=== PATIENT | female | born 1935 | race Caucasian/White ===

== ENCOUNTER 2016-11-08 14:35 | Inpatient (IN) | payer OTHER, MEDICARE ==
[~2016-11-08] VITALS: Ht 157.5 cm; Wt 71.9 kg
[2016-11-17] MEDS ORDERED: PLAV75TA29 PO (10:25)
[2016-11-17] MEDS ORDERED: ATEN1TAB75 PO (10:25)
[2016-11-17] MEDS ORDERED: LEVO.05 PO (10:25)
[2016-11-17] MEDS ORDERED: AMLO10 PO (10:25)
[2016-11-17] MEDS ORDERED: HYDR25TA5 PO (10:25)
[2016-11-17] MEDS ORDERED: LIPI40TA PO (10:25)
[2016-11-17] MEDS ORDERED: COZA25TA PO (10:25)
[2016-11-17] MEDS ORDERED: ASPI1TAB69 PO (10:27)
[2016-11-17] MEDS ORDERED: FLUT1SPR5 EACH NARE (10:34)
[2016-11-21] MEDS ORDERED: LIPI20TA PO (11:59)
[2016-11-21] MEDS ORDERED: DEXT 5%-NACL 0.9% 1000 ML INJ 1,000 ML IV SCH (12:00)
[2016-11-21] MEDS ORDERED: ALVIMOPAN 12 MG CAPSULE - On Call PO SCH (12:00)
[2016-11-21] MEDS ORDERED: PROPOFOL 200 MG/20 ML AMP IV ONE (12:00)
[2016-11-21] MEDS ORDERED: ONDANSETRON HCL 4 MG/2 ML VIAL IV PUSH ONE (12:00)
[2016-11-21] MEDS ORDERED: ceFAZolin 1,000 MG/NS 100 ML IV SCH ×2 (12:00)
[2016-11-21] MEDS ORDERED: METOPROLOL TARTRATE 25 MG TAB PO PRN (12:00)
[2016-11-21] MEDS ORDERED: METRONIDAZOLE 500 MG/100 ML ISONTONIC SOLN IV SCH (12:00)
[2016-11-21] MEDS ORDERED: PHENYLEPH/NS 1000 MCG/10 ML SYR IV ONE (12:00)
[2016-11-21] MEDS ORDERED: INSULIN HUMAN REGULAR 1,000 UNITS/10 ML VIAL SQ PRN (12:00)
[2016-11-21] MEDS ORDERED: NORMOSOL R INJ 1,000 ML IV ONE (12:00)
[2016-11-21] MEDS ORDERED: LACTATED RINGER'S 1000 ML INJ 1,000 ML IV ONE (12:00)
[2016-11-21] MEDS ORDERED: LACTATED RINGER'S 1000 ML IV SCH (12:00)
[2016-11-21] MEDS ORDERED: SODIUM CHLORID 0.9% 500 ML IV SCH (12:00)
[2016-11-21 12:17] VITALS: BP 155/67; PULSE 62; RESP 16; TEMP 97.1; O2SAT 96
[2016-11-21] MEDS ORDERED: BUPIVACAINE HCL PF 0.5% 30 ML VIAL ONE ×3 (12:45→15:35)
[2016-11-21] MEDS ORDERED: GLUCAGON 1 MG/ML VIAL ONE (12:45)
[2016-11-21] MEDS ORDERED: FAMOTIDINE 20 MG/2 ML VIAL ONE (13:47)
[2016-11-21] MEDS ORDERED: SUGAMMADEX SODIUM 200 MG/2 ML VIAL IV PUSH ONE ×2 (13:47)
[2016-11-21] MEDS ORDERED: DEXAMETHASONE SOD PHOS 4 MG/ML VIAL ONE (13:47)
[2016-11-21] MEDS ORDERED: ACETAMINOPHEN 1000 MG/100 ML VIAL IV ONE (13:47)
--- NOTE | 2016-11-21 14:18 | PD.HP.UP ---
H&P Update Note The Pre-Admit History and Physical Examination regarding the above named patient was reviewed (including, but not limited to, vital signs, heart, lungs, co-morbid conditions), and upon re-examination it is noted that: the patient's condition has not significantly changed since the last examination. Luke Man MD Nov 21, 2016 14:18
[2016-11-21] MEDS ORDERED: ceFAZolin INJ 1,000 MG VIAL IV ONE (16:45)
[2016-11-21] MEDS ORDERED: ENALAPRILAT 2.5 MG/2 ML VIAL IV PRN (17:00)
[2016-11-21] MEDS ORDERED: SODIUM CHLORIDE 0.9% FLUSH 5 ML FLUSH IVF PRN (17:00)
[2016-11-21] MEDS ORDERED: BUPIVACAINE HCL PF 0.5% 30 ML VIAL NB SCH (17:00)
[2016-11-21] MEDS ORDERED: ENALAPRILAT 1.25 MG/ML VIAL IV PRN (17:00)
[2016-11-21] MEDS ORDERED: POTASSIUM CHLOR 20 MEQ PREMIX 100 ML IV PRN (17:00)
[2016-11-21] MEDS ORDERED: KETOROLAC TROMETHAMINE 30 MG/ML (IVP) VIAL IVP PRN (17:00)
[2016-11-21] MEDS ORDERED: MORPHINE SULFATE 30 MG/30 ML PCA IV SCH (17:00)
[2016-11-21] MEDS ORDERED: ACETAMINOPHEN/HYDROcodone 325 MG/5 MG TAB PO PRN ×2 (17:00)
[2016-11-21] MEDS ORDERED: NALOXONE HCL 0.4 MG/ML AMP IV PRN (17:00)
[2016-11-21] MEDS ORDERED: Post-op Orders (for Pharmacy) MISC XX ONE (17:00)
[2016-11-21] MEDS ORDERED: POTASSIUM CHLOR 40 MEQ PREMIX 100 ML IV PRN (17:00)
[2016-11-21] MEDS ORDERED: BENZOCAINE 6 MG/MENTHOL 10 MG LOZENGE SUCK-ON PRN (17:00)
[2016-11-21] MEDS ORDERED: ONDANSETRON HCL 4 MG/2 ML VIAL IV PRN (17:00)
[2016-11-21] MEDS ORDERED: ACETAMINOPHEN 325 MG TAB PO PRN (17:00)
[2016-11-21] MEDS ORDERED: DO NOT ADM ANY ANTICOAGULANT DRUGS XX PRN (17:04)
[2016-11-21] MEDS ORDERED: *morphine SULFATE 8 MG/ML PERIprocedure ONLY ONE (17:10)
[2016-11-21] MEDS ORDERED: FLUTICASONE PROPIONATE 50 MCG/ACT 16 GM NASAL SPRAY EACH NARE PRN (17:15)
[2016-11-21] MEDS: LOSARTAN 25 MG TAB PO SCH (17:15)
[2016-11-21] MEDS ORDERED: MIDAZOLAM HCL 2 MG/2 ML VIAL ONE (17:18)
[2016-11-21] MEDS ORDERED: fentaNYL CITRATE 250 MCG/5 ML AMP ONE (17:18)
[2016-11-21] MEDS: D5-NS + KCL 20 MEQ INJ 1,000 ML IV SCH (17:30)
[2016-11-21] MEDS ORDERED: *ONDANSETRON 4 MG VIAL PERIprocedural Use ONLY ONE (17:48)
[2016-11-21] MEDS: LEVOTHYROXINE SODIUM 50 MCG TAB PO SCH (18:00)
[2016-11-21 18:37] VITALS: BP 137/57; PULSE 67; RESP 18; TEMP 97.7; O2SAT 96
[2016-11-21 18:38] VITALS: PULSE 70
[2016-11-21 19:00] VITALS: BP 137/57; PULSE 65; RESP 18; TEMP 97.9; O2SAT 98
[2016-11-21] MEDS ORDERED: ATENOLOL 100 MG TAB PO SCH (21:00)
[2016-11-21] MEDS: metroNIDAZOLE 500 MG INJ 100 ML IV SCH (21:24)
[2016-11-21] MEDS: ATORVASTATIN 20 MG TAB PO SCH (21:25)
[2016-11-21] MEDS: METOCLOPRAMIDE HCL 10 MG/2 ML VIAL IVS SCH (21:25)
[2016-11-21] MEDS: SODIUM CHLORIDE 0.9% FLUSH 5 ML FLUSH IVF SCH (21:26)
[2016-11-21] MEDS: PCA - TOTAL MG MORPHINE DELIVERED PER SHIFT SCH (22:00)
[2016-11-21 23:00] VITALS: BP 135/60; PULSE 65; PULSE 66; RESP 18; TEMP 97.9; O2SAT 99
[2016-11-22] VITALS (17 sets, daily range): BP systolic 115–134; BP diastolic 48–60; PULSE 61–83; RESP 18–19; TEMP 97.2–98.2; O2SAT 92–97
[2016-11-22] MEDS: metroNIDAZOLE 500 MG INJ 100 ML IV SCH ×2 (04:17→14:01)
[2016-11-22] MEDS: D5-NS + KCL 20 MEQ INJ 1,000 ML IV SCH ×2 (04:18→21:00)
[2016-11-22] MEDS: PCA - TOTAL MG MORPHINE DELIVERED PER SHIFT SCH ×3 (06:00→20:53)
[2016-11-22 06:31] LABS: AUTOMATED NEUTROPHIL # 16.4 TH/MM3 (1.8-7.7); HEMATOCRIT 31.5 % (35.0-46.0); HEMO FLAGS DIFF FINAL; LYMPH % 1.6 % (9.0-44.0); LYMPHOCYTE # 0.3 TH/MM3 (1.0-4.8); MEAN CELL VOLUME 87.5 FL (80.0-100.0); MEAN CORPUSCULAR HEMOGLOBIN 28.7 PG (27.0-34.0); MEAN CORPUSCULAR HGB CONC 32.8 % (32.0-36.0); MONO % 7.2 % (0.0-8.0); NEUT % 91.2 % (16.0-70.0); PLATELET COUNT 261 TH/MM3 (150-450); RED CELL DISTRIBUTION WIDTH 13.9 % (11.6-17.2)
[2016-11-22 06:55] LABS: BICARBONATE 24.4 MEQ/L (21.0-32.0); POTASSIUM 3.5 MEQ/L (3.5-5.1)
[2016-11-22] MEDS: PANTOPRAZOLE SOD 40 MG DELAYED RELEASE TAB PO SCH ×2 (09:00→09:34)
[2016-11-22] MEDS: PANTOPRAZOLE SODIUM 40 MG VIAL IVP SCH (09:32)
[2016-11-22] MEDS: SODIUM CHLORIDE 0.9% FLUSH 5 ML FLUSH IVF SCH ×2 (09:33→20:54)
[2016-11-22] MEDS: METOCLOPRAMIDE HCL 10 MG/2 ML VIAL IVS SCH ×2 (09:33→20:54)
[2016-11-22] MEDS: ALVIMOPAN 12 MG CAPSULE - Post-op dosing PO SCH ×2 (09:33→20:54)
[2016-11-22] MEDS: LOSARTAN 25 MG TAB PO SCH (09:33)
[2016-11-22] MEDS: ACETAMINOPHEN 1000 MG/100 ML VIAL IV PRN (11:49)
[2016-11-22] MEDS: LEVOTHYROXINE SODIUM 50 MCG TAB PO SCH (17:00)
[2016-11-22] MEDS: HEPARIN SODIUM - SQ 10,000 UNITS/ML VIAL SQ SCH (18:18)
[2016-11-22] MEDS: ATORVASTATIN 20 MG TAB PO SCH (20:51)
[2016-11-22] MEDS ORDERED: ALVIMOPAN 12 MG CAPSULE PO SCH (21:00)
[2016-11-23] VITALS (7 sets, daily range): BP systolic 123–147; BP diastolic 59–65; PULSE 65–88; RESP 17–19; TEMP 94.5–98; O2SAT 91–98
[2016-11-23] MEDS: HEPARIN SODIUM - SQ 10,000 UNITS/ML VIAL SQ SCH ×2 (04:45→16:32)
[2016-11-23] MEDS: PCA - TOTAL MG MORPHINE DELIVERED PER SHIFT SCH ×2 (04:45→13:37)
[2016-11-23 05:33] LABS: AUTOMATED NEUTROPHIL # 19.8 TH/MM3 (1.8-7.7); BASOPHIL # 0.1 TH/MM3 (0-0.2); BASOPHIL % 0.5 % (0.0-2.0); EOSINOPHIL % 0.1 % (0.0-4.0); HEMATOCRIT 29.1 % (35.0-46.0); LYMPH % 3.3 % (9.0-44.0); LYMPHOCYTE # 0.7 TH/MM3 (1.0-4.8); MEAN CELL VOLUME 87.5 FL (80.0-100.0); MEAN CORPUSCULAR HEMOGLOBIN 28.5 PG (27.0-34.0); MEAN CORPUSCULAR HGB CONC 32.6 % (32.0-36.0); MONO % 5.4 % (0.0-8.0); NEUT % 90.7 % (16.0-70.0); PLATELET COUNT 236 TH/MM3 (150-450); RED BLOOD COUNT 3.33 MIL/MM3 (4.00-5.30); RED CELL DISTRIBUTION WIDTH 14.2 % (11.6-17.2); WHITE BLOOD COUNT 21.8 TH/MM3 (4.0-11.0)
[2016-11-23 05:37] LABS: HEMO FLAGS AUTO DIFF
[2016-11-23 05:50] LABS: POTASSIUM 3.6 MEQ/L (3.5-5.1)
[2016-11-23 07:35] LABS: SCAN/DIFF AUTO DIFF CONFIRMED
[2016-11-23] MEDS: ALVIMOPAN 12 MG CAPSULE - Post-op dosing PO SCH ×2 (08:18→21:06)
[2016-11-23] MEDS: LOSARTAN 25 MG TAB PO SCH (08:18)
[2016-11-23] MEDS: SODIUM CHLORIDE 0.9% FLUSH 5 ML FLUSH IVF SCH ×2 (08:19→21:03)
[2016-11-23] MEDS: PANTOPRAZOLE SOD 40 MG DELAYED RELEASE TAB PO SCH (08:19)
[2016-11-23] MEDS: METOCLOPRAMIDE HCL 10 MG/2 ML VIAL IVS SCH ×2 (08:19→21:04)
[2016-11-23] MEDS: PANTOPRAZOLE SODIUM 40 MG VIAL IVP SCH (08:19)
[2016-11-23] MEDS: D5-NS + KCL 20 MEQ INJ 1,000 ML IV SCH ×2 (08:20→21:03)
--- NOTE | 2016-11-23 08:23 | MP ---
cc: PANCHO REYES M.D. DATE OF SURGERY: November 21, 2016 PREOPERATIVE DIAGNOSIS Carcinoma of the rectosigmoid. PROCEDURE Exploratory laparotomy with proctosigmoidectomy. POSTOPERATIVE DIAGNOSIS Carcinoma of the rectosigmoid SURGEON Dr. Reyes. [employer] Dr. Braulio Alonso. PROCEDURE The patient was placed in the supine position. After adequate general anesthesia her legs were placed in [place] stirrups and supported appropriately. The abdomen and perineum were then prepped with Betadine solution and draped in the usual sterile fashion. With Dr. Alonso's assistance the abdomen was opened through an infraumbilical transverse incision dividing the rectus muscles with electrocautery. Upon entering the abdomen some adhesions to the parietal peritoneum were taken down. Exploration revealed a palpable tumor just about the perineal reflection with some serosal puckering, was not adherent to any surrounding structure. The proximal colon was palpated and felt to be pretty unremarkable. The small bowel was run from ligament of Treitz down to ileocecal valve and felt to be normal. Liver and gallbladder were unremarkable. The stomach and duodenum were normal. The uterus had been previously removed. Both ovaries were atrophic and appropriate for the patient's age. Great vessels were of normal caliber and only slightly calcified. First the sigmoid colon was mobilized medially by dividing along the white line of Toldt. The left ureter was identified and carefully preserved. Dissection then proceeded up the left gutter taking down attachments to the retroperitoneum, mobilizing the left colon up to around the area of the splenic flexure. The right retroperitoneal space was then opened and the bowel dissected off the presacral fascia, pedicle for the superior hemorrhoidal vessels identified and divided between Tiffanie's obtaining hemostasis with Vicryl ties and bowel was dissected and off the presacral fascia down to the pelvic floor for full rectal mobilization. The cul-de-sac was then opened and the bowel dissected off the posterior vaginal wall. After full rectal mobilization a point in the mid rectum accurate distance below the tumor was chosen and the mesorectum taken with electrocautery. The bowel was then divided using a pursestring suture device and a Edwin clamp. The bowel was then sized to reach the rectum without tension and with good blood supply leaving the left colic vessels. The marginal artery was taken and the bowel divided in the midsigmoid using a pursestring suture device and a Edwin clamp. The end of the bowel was sized to accept a 29-mm EEA stapling anvil and this was secured with a pursestring suture. Dr. Alonso inserted the EEA stapling instrument transanally and under direct vision it was brought up to the rectal pouch and a pursestring suture tied. The stapler was then reassembled, the bowel aligned properly, the stapler closed and fired, upon withdrawal two complete doughnuts of tissue were seen. Gentle insufflation confirmed an airtight anastomosis. The abdomen was then irrigated copiously with normal saline. Adequate hemostasis was achieved. Jamar-Guerrero drain was placed down to the pelvis and brought up through a stab wound in the left lower quadrant and secured to the skin with a nylon suture. Transverse incision was closed anatomically in two layers using #1 PDS sutures to reapproximate the respective fascial layers. On-Q catheters were placed into the rectus sheath on both sides, brought up through subcutaneous tunnel above the transverse incision. The subcu tissue was irrigated copiously and the skin closed with a running subcuticular Vicryl suture. Wound area was washed with normal saline and dried, sterile dressing of Telfa and gauze applied. The patient tolerated the procedure quite well and was brought to the recovery room in stable condition. Sponge and needle counts were correct at the end of the procedure. MD EDUARDO Gaytan/ROHIT /7:38 AM /7:58 AM
[2016-11-23] MEDS: LEVOTHYROXINE SODIUM 50 MCG TAB PO SCH (16:31)
[2016-11-23] MEDS: ACETAMINOPHEN 1000 MG/100 ML VIAL IV PRN (16:32)
[2016-11-23] MEDS ORDERED: ACETAMINOPHEN 325 MG TAB PO PRN (20:15)
[2016-11-23] MEDS: ATORVASTATIN 20 MG TAB PO SCH (21:00)
--- NOTE | 2016-11-23 22:53 | HHI.PR ---
Subjective Remarks C/R Surg POD #2 afebrile, VSS UO good ALLYN min Objective - Vital Signs Date Time Temp Pulse Resp B/P Pulse Ox O2 Delivery O2 Flow Rate FiO2 11/23/16 16:00 94.5 84 17 147/65 91 11/23/16 09:50 Nasal Cannula 3.00 Result Diagram: 11/23/16 0435 11/23/16 0435 Objective Remarks PE alert Abd - soft, wound dry, +flatus A/P Assessment and Plan Imp: stable post-op OOB start PO dc Luke Johnson AM, MD Nov 23, 2016 22:53
[2016-11-24] VITALS: BP 159/61; PULSE 112; RESP 18; TEMP 98.7; O2SAT 92
[2016-11-24] MEDS: HEPARIN SODIUM - SQ 10,000 UNITS/ML VIAL SQ SCH ×2 (05:27→16:12)
[2016-11-24 08:00] VITALS: BP 154/64; PULSE 102; RESP 18; TEMP 97.2; O2SAT 91
[2016-11-24] MEDS: PANTOPRAZOLE SOD 40 MG DELAYED RELEASE TAB PO SCH (09:00)
[2016-11-24] MEDS: SODIUM CHLORIDE 0.9% FLUSH 5 ML FLUSH IVF SCH ×2 (09:00→20:18)
[2016-11-24] MEDS: PANTOPRAZOLE SODIUM 40 MG VIAL IVP SCH (09:23)
[2016-11-24] MEDS: METOCLOPRAMIDE HCL 10 MG/2 ML VIAL IVS SCH ×2 (09:23→20:17)
[2016-11-24] MEDS: LOSARTAN 25 MG TAB PO SCH (09:23)
[2016-11-24] MEDS: ALVIMOPAN 12 MG CAPSULE - Post-op dosing PO SCH ×2 (09:24→20:16)
[2016-11-24 12:00] VITALS: BP 148/67; PULSE 98; RESP 20; TEMP 96.9; O2SAT 92
--- NOTE | 2016-11-24 12:48 | HHI.PR ---
Subjective Remarks POD#3 s/p LAR for rectal cancer Denies pain, passing flatus Objective Vital Signs Date Time Temp Pulse Resp B/P Pulse Ox O2 Delivery O2 Flow Rate FiO2 11/24/16 08:00 97.2 102 18 154/64 91 11/24/16 00:00 98.7 112 18 159/61 92 11/23/16 20:00 97.2 88 18 136/63 92 11/23/16 16:00 94.5 84 17 147/65 91 I/O 11/23/16 11/23/16 11/23/16 11/24/16 11/24/16 11/24/16 07:00 15:00 23:00 07:00 15:00 23:00 Intake Total 1393 ml 692 ml 607 ml 506 ml Output Total 290 ml 830 ml 60 ml 80 ml 300 ml Balance 1103 ml -138 ml 547 ml 426 ml -300 ml Intake Oral 0 ml IV Total 1393 ml 692 ml 607 ml 506 ml Output Urine Total 250 ml 800 ml 300 ml Drainage Total 40 ml 30 ml 60 ml 80 ml # Bowel Movements 0 Result Diagram: 11/23/16 0435 11/23/16 0435 Objective Remarks Abdomen soft, mild distended, tender Wound clean ALLYN serosanguinous Assessment and Plan Assessment and Plan Advance diet Decrease IV Aggressive pulmonary toilet Madai Sandoval MD Nov 24, 2016 12:48
[2016-11-24 16:00] VITALS: BP 140/62; PULSE 92; RESP 19; TEMP 96.5; O2SAT 91
[2016-11-24] MEDS: LEVOTHYROXINE SODIUM 50 MCG TAB PO SCH (16:12)
[2016-11-24 20:00] VITALS: BP 137/63; PULSE 88; RESP 20; TEMP 97.4; O2SAT 92
[2016-11-24] MEDS: ATORVASTATIN 20 MG TAB PO SCH (20:19)
[2016-11-25] VITALS: BP 159/70; PULSE 93; RESP 18; TEMP 98.8; O2SAT 93
[2016-11-25] MEDS: HEPARIN SODIUM - SQ 10,000 UNITS/ML VIAL SQ SCH ×2 (04:56→17:56)
[2016-11-25 08:00] VITALS: BP 154/69; PULSE 91; RESP 18; TEMP 97.8; O2SAT 95
[2016-11-25] MEDS: METOCLOPRAMIDE HCL 10 MG/2 ML VIAL IVS SCH ×2 (08:48→21:00)
[2016-11-25] MEDS: LOSARTAN 25 MG TAB PO SCH (08:48)
[2016-11-25] MEDS: SODIUM CHLORIDE 0.9% FLUSH 5 ML FLUSH IVF SCH ×2 (08:48→21:50)
[2016-11-25] MEDS: PANTOPRAZOLE SOD 40 MG DELAYED RELEASE TAB PO SCH (08:48)
[2016-11-25] MEDS: ALVIMOPAN 12 MG CAPSULE - Post-op dosing PO SCH ×2 (08:49→21:47)
[2016-11-25] MEDS: PANTOPRAZOLE SODIUM 40 MG VIAL IVP SCH (08:50)
[2016-11-25 12:00] VITALS: BP 128/60; PULSE 97; RESP 16; TEMP 96.1; O2SAT 96
--- NOTE | 2016-11-25 12:01 | HHI.PR ---
Subjective Remarks POD#4 s/p LAR for rectal cancer Denies pain, passing flatus - no stool Objective Vital Signs Date Time Temp Pulse Resp B/P Pulse Ox O2 Delivery O2 Flow Rate FiO2 11/25/16 08:00 97.8 91 18 154/69 95 11/25/16 00:00 98.8 93 18 159/70 93 11/24/16 20:00 97.4 88 20 137/63 92 11/24/16 16:00 96.5 92 19 140/62 91 I/O 11/24/16 11/24/16 11/24/16 11/25/16 11/25/16 11/25/16 06:59 14:59 22:59 06:59 14:59 22:59 Intake Total 506 ml 700 ml 0 ml 360 ml Output Total 80 ml 350 ml 60 ml 600 ml Balance 426 ml 350 ml -60 ml -240 ml Intake Oral 700 ml 360 ml IV Total 506 ml 0 ml 0 ml Output Urine Total 300 ml 600 ml Drainage Total 80 ml 50 ml 60 ml # Voids 2 # Bowel Movements 0 0 Result Diagram: 11/23/16 0435 11/23/16 043 Objective Remarks Abdomen soft, mild distended, tender Wound clean ALLYN serosanguinous Assessment and Plan Assessment and Plan HL IV D/C ALLYN Await bowel function Awaiting placement Madai Sandoval MD Nov 25, 2016 12:01
[2016-11-25 16:00] VITALS: BP 133/71; PULSE 82; RESP 19; TEMP 97.9; O2SAT 97
[2016-11-25] MEDS: LEVOTHYROXINE SODIUM 50 MCG TAB PO SCH (16:17)
[2016-11-25 20:00] VITALS: BP 134/69; PULSE 132; RESP 19; TEMP 97.4; O2SAT 95
[2016-11-25] MEDS: ATORVASTATIN 20 MG TAB PO SCH (21:00)
[2016-11-26] VITALS: BP 136/82; PULSE 99; RESP 19; TEMP 98.6; O2SAT 99
[2016-11-26] MEDS: LEVOTHYROXINE SODIUM 50 MCG TAB PO SCH (06:32)
[2016-11-26] MEDS: HEPARIN SODIUM - SQ 10,000 UNITS/ML VIAL SQ SCH ×2 (06:33→18:28)
[2016-11-26 08:00] VITALS: BP 147/64; PULSE 84; RESP 17; TEMP 98.4; O2SAT 97
[2016-11-26] MEDS: PANTOPRAZOLE SOD 40 MG DELAYED RELEASE TAB PO SCH (08:49)
[2016-11-26] MEDS: PANTOPRAZOLE SODIUM 40 MG VIAL IVP SCH (08:50)
[2016-11-26] MEDS: LOSARTAN 25 MG TAB PO SCH (08:50)
[2016-11-26] MEDS: ALVIMOPAN 12 MG CAPSULE - Post-op dosing PO SCH ×2 (08:50→20:33)
[2016-11-26] MEDS: SODIUM CHLORIDE 0.9% FLUSH 5 ML FLUSH IVF SCH ×2 (09:00→20:34)
[2016-11-26] MEDS: METOCLOPRAMIDE HCL 10 MG/2 ML VIAL IVS SCH ×2 (09:00→20:33)
--- NOTE | 2016-11-26 11:11 | HHI.PR ---
Subjective Remarks POD#5 s/p LAR for rectal cancer comfortable, weak Objective Vital Signs Date Time Temp Pulse Resp B/P Pulse Ox O2 Delivery O2 Flow Rate FiO2 11/26/16 08:00 98.4 84 17 147/64 97 11/26/16 00:00 98.6 99 19 136/82 99 11/25/16 20:00 97.4 132 19 134/69 95 11/25/16 16:00 97.9 82 19 133/71 97 11/25/16 12:00 96.1 97 16 128/60 96 I/O 11/25/16 11/25/16 11/25/16 11/26/16 11/26/16 11/26/16 07:00 15:00 23:00 07:00 15:00 23:00 Intake Total 240 ml 702 ml 240 ml 240 ml Output Total 200 ml 305 ml 850 ml 850 ml Balance 40 ml 397 ml -610 ml -610 ml Intake Oral 240 ml 702 ml 240 ml 240 ml IV Total 0 ml 0 ml Output Urine Total 200 ml 275 ml 850 ml 850 ml Drainage Total 30 ml # Bowel Movements 0 0 0 0 Result Diagram: 11/23/16 0435 11/23/16 0435 Objective Remarks Abdomen soft, mild distended, tender Wound clean Assessment and Plan Assessment and Plan Miralax Awaiting placement Madai Sandoval MD Nov 26, 2016 11:11
[2016-11-26] MEDS ORDERED: POLYETHYLENE GLYCOL 17 GM PKG PO ONE (11:15)
[2016-11-26 12:00] VITALS: BP 131/63; PULSE 104; RESP 17; TEMP 97.3; O2SAT 96
[2016-11-26 16:00] VITALS: BP 149/69; PULSE 81; RESP 17; TEMP 98; O2SAT 93
[2016-11-26 20:00] VITALS: BP 158/63; PULSE 63; RESP 20; TEMP 96.9; O2SAT 96
[2016-11-26] MEDS: ATORVASTATIN 20 MG TAB PO SCH (20:33)
[2016-11-27] VITALS: BP 126/60; PULSE 85; RESP 20; TEMP 98; O2SAT 94
[2016-11-27] MEDS: HEPARIN SODIUM - SQ 10,000 UNITS/ML VIAL SQ SCH ×2 (05:24→18:07)
[2016-11-27] MEDS: LEVOTHYROXINE SODIUM 50 MCG TAB PO SCH (05:24)
[2016-11-27 08:00] VITALS: BP 137/62; PULSE 86; RESP 17; TEMP 97.9; O2SAT 95
[2016-11-27] MEDS: PANTOPRAZOLE SODIUM 40 MG VIAL IVP SCH (09:00)
[2016-11-27] MEDS: METOCLOPRAMIDE HCL 10 MG/2 ML VIAL IVS SCH ×2 (09:00→20:07)
[2016-11-27] MEDS: LOSARTAN 25 MG TAB PO SCH (09:23)
[2016-11-27] MEDS: PANTOPRAZOLE SOD 40 MG DELAYED RELEASE TAB PO SCH (09:23)
[2016-11-27] MEDS: ALVIMOPAN 12 MG CAPSULE - Post-op dosing PO SCH ×2 (09:23→20:08)
[2016-11-27] MEDS: SODIUM CHLORIDE 0.9% FLUSH 5 ML FLUSH IVF SCH ×2 (09:24→20:07)
[2016-11-27 12:00] VITALS: BP 146/63; PULSE 100; RESP 17; TEMP 98.2; O2SAT 96
--- NOTE | 2016-11-27 13:02 | HHI.PR ---
Subjective Remarks POD#6 s/p LAR for rectal cancer comfortable, feels stronger No stool as yet Objective Vital Signs Date Time Temp Pulse Resp B/P Pulse Ox O2 Delivery O2 Flow Rate FiO2 11/27/16 12:00 98.2 100 17 146/63 96 11/27/16 08:00 97.9 86 17 137/62 95 11/27/16 00:00 98.0 85 20 126/60 94 11/26/16 20:00 96.9 63 20 158/63 96 11/26/16 16:00 98.0 81 17 149/69 93 I/O 11/26/16 11/26/16 11/26/16 11/27/16 11/27/16 11/27/16 06:59 14:59 22:59 06:59 14:59 22:59 Intake Total 240 ml 240 ml 240 ml Output Total 850 ml 700 ml Balance -610 ml -700 ml 240 ml 240 ml Intake Oral 240 ml 240 ml 240 ml IV Total 0 ml Output Urine Total 850 ml 700 ml # Voids 1 3 # Bowel Movements 0 0 0 2 Result Diagram: 11/23/16 0435 11/23/16 0435 Objective Remarks Abdomen soft, mild distended, tender Wound clean Assessment and Plan Assessment and Plan Miralax Awaiting placement Madai Sandoval MD Nov 27, 2016 13:02
[2016-11-27] MEDS: POLYETHYLENE GLYCOL 17 GM PKG PO SCH (15:12)
[2016-11-27 16:00] VITALS: BP 134/60; PULSE 86; RESP 17; TEMP 98.3; O2SAT 95
[2016-11-27 20:00] VITALS: BP 157/67; PULSE 84; RESP 20; TEMP 97.8; O2SAT 98
[2016-11-27] MEDS: ATORVASTATIN 20 MG TAB PO SCH (20:08)
[2016-11-28] VITALS: BP 148/72; PULSE 80; RESP 20; TEMP 98; O2SAT 97
[2016-11-28] MEDS: LEVOTHYROXINE SODIUM 50 MCG TAB PO SCH (05:43)
[2016-11-28] MEDS: HEPARIN SODIUM - SQ 10,000 UNITS/ML VIAL SQ SCH (05:43)
[2016-11-28 08:00] VITALS: BP 142/60; PULSE 82; RESP 18; TEMP 98.9; O2SAT 95
[2016-11-28] MEDS: PANTOPRAZOLE SODIUM 40 MG VIAL IVP SCH (09:00)
[2016-11-28] MEDS: ALVIMOPAN 12 MG CAPSULE - Post-op dosing PO SCH (09:00)
[2016-11-28] MEDS: POLYETHYLENE GLYCOL 17 GM PKG PO SCH (11:25)
[2016-11-28] MEDS: METOCLOPRAMIDE HCL 10 MG/2 ML VIAL IVS SCH (11:26)
[2016-11-28] MEDS: PANTOPRAZOLE SOD 40 MG DELAYED RELEASE TAB PO SCH (11:26)
[2016-11-28] MEDS: LOSARTAN 25 MG TAB PO SCH (11:27)
[2016-11-28] MEDS: SODIUM CHLORIDE 0.9% FLUSH 5 ML FLUSH IVF SCH (11:28)
[2016-11-28 12:00] VITALS: BP 136/69; PULSE 94; RESP 18; TEMP 98.3; O2SAT 98
[2016-11-28] MEDS ORDERED: HYDROCHLOROTHIAZIDE 25 MG TAB PO ONE (14:30)
[2016-11-28] MEDS ORDERED: ASPIRIN 81 MG CHEW TAB PO ONE (14:30)
[2016-11-28] MEDS ORDERED: CLOPIDOGREL 75 MG TAB PO ONE (14:30)
[2016-11-28 16:00] VITALS: BP 151/64; PULSE 88; RESP 16; TEMP 98.7; O2SAT 97
[2016-11-29] MEDS ORDERED: HYDROCHLOROTHIAZIDE 25 MG TAB PO SCH (09:00)
[2016-11-29] MEDS ORDERED: CLOPIDOGREL 75 MG TAB PO SCH (09:00)
[2016-11-29] MEDS ORDERED: ASPIRIN 81 MG CHEW TAB PO SCH (09:00)
--- NOTE | 2017-01-03 10:10 | MD ---
cc: PANCHO REYES M.D., MARK ADMISSION DATE: 11/21/2016 DISCHARGE DATE: 11/28/2016 ADMITTING DIAGNOSIS Carcinoma of the rectosigmoid. PROCEDURE 11/21/2016 Exploratory laparotomy with proctosigmoidectomy. DISCHARGE DIAGNOSIS Carcinoma of the rectosigmoid T3,N0,M0. HISTORY OF PRESENT ILLNESS Ms. Hinkle is an 81-year-old female who had not been seen for quite a few years, did have polyps taken out of the colon back in 2009. Recently she was found to have rectal bleeding and evaluation with colonoscopy showed a fairly large polypoid tumor in the rectosigmoid. Biopsies showed invasive cancer. She does have loose stools constantly and goes to the bathroom quite frequently. Denies any incontinence. No nausea or vomiting. No melena. Appetite has been good. Weight is up about 3 pounds to 162. The patient was admitted at this time for definitive surgical resection. Please see the admitting history and physical for more complete past medical and surgical history. PERTINENT PHYSICAL A very pleasant older female in no acute distress. Abdomen was very soft and benign. Good bowel sounds. No rebound or guarding or any masses noted. Anal inspection revealed benign canal. Digital exam revealed good tone. No masses or tenderness. No blood on the finger. HOSPITAL COURSE After admission, the patient was taken to the operating room on 11/21/2016, at which point she underwent an exploratory laparotomy and proctosigmoidectomy. She was found to have a rather bulky tumor just about the perineal reflection with some serosal puckering. The liver and gallbladder were pretty unremarkable. The patient tolerated the procedure quite well. Initially she was stabilized in the intensive care unit. Her bowel function began quite promptly and her diet was advanced accordingly. She was able to ambulate with some assistance. She required some respiratory therapy for post-op atelectasis. She continued to gain some strength and increased oral intake. IV fluids were tapered. She was doing well enough to be considered for [facility] on 11/28/2016. 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 14 pericolonic lymph nodes were negative for malignancy, stage T3,N0,M0. DISCHARGE INSTRUCTIONS The patient was discharged eating a regular diet. She was encouraged to ambulate daily avoiding any heavy lifting or straining. All pre-op medications were to be continued. The patient will be seen in the office in one week's time for routine follow-up. If any problems prior to the scheduled office visit she was encouraged to call for more urgent attention. MD EDUARDO Gaytan/MOHAMUD /1:55 PM /9:52 AM
== END 2016-11-28 18:19 | DRG 331 ==
LOC: HSDI 11-21 11:28 → HCIN 11-21 18:26 → N07A 11-22 19:08
PROVIDERS: ADMIT Colon & Rectal Surgery; ATTEND Colon & Rectal Surgery
PROC: 0DBP0ZZ Excision of Rectum, Open Approach (ICD-10-PCS; 2016-11-21)
PROC: 07BC0ZX Excision of Pelvis Lymphatic, Open Approach, Diagnostic (ICD-10-PCS; 2016-11-21)
PROC: 0DBN0ZZ Excision of Sigmoid Colon, Open Approach (ICD-10-PCS; principal; 2016-11-21 14:40)
DX: C19 Malignant neoplasm of rectosigmoid junction (principal); I25.10 Atherosclerotic heart disease of native coronary artery without angina pectoris; I10 Essential (primary) hypertension; Z95.1 Presence of aortocoronary bypass graft; Z87.891 Personal history of nicotine dependence
CPT/HCPCS: 80048; 85025; 86850; 86900; 86901; 88309; 94150; C9113; J0131; J0690; J1100; J1610; J1644; J2250; J2270; J2370; J2405; J2765; J3010; J3480; J7120